=== PATIENT | female | born 1995 | race Caucasian/White ===

== ENCOUNTER → 2017-03-21 | Outpatient (CLI) | payer BC | LOC: LAB 10:52 | DX: O20.0 Threatened abortion (principal) | CPT/HCPCS: 36415; 84702; 86900; 86901 ==

== ENCOUNTER → 2017-03-25 | Outpatient (CLI) | payer BC | LOC: LAB 13:00 | DX: O20.0 Threatened abortion (principal) | CPT/HCPCS: 36415; 84702 ==

== ENCOUNTER 2021-06-07 16:45 | Inpatient (IN) | payer OTHER ==
[~2021-06-07] VITALS: Ht 167.6 cm; Wt 99.8 kg
[~2021-06-07 16:45] MED LIST: COLACE 100MG C100 MG PO; IBUPROFEN600 MG PO; PRENATAL TABLE1 EAC1 PO
[2021-06-07 19:23] LABS: HEMOGLOBIN 13.2 gm/dl (12.3-15.3); RED BLOOD COUNT 4.17 M/UL (4.00-5.10); WHITE BLOOD COUNT 10.1 K/UL (4.5-11.0)
[2021-06-09 05:10] LABS: HEMOGLOBIN 11.4 gm/dl (12.3-15.3)
[2021-06-09] MEDS ORDERED: DOCUSATE SODIU100 MG PO (10:49)
[2021-06-09] MEDS ORDERED: IBUPROFEN600 MG PO (10:49)
== END 2021-06-09 16:28 | disposition home or self-care (01) | DRG 807 ==
LOC: GENOP 16:45 → OB 17:16
PROVIDERS: Obstetrics & Gynecology; ADMIT Obstetrics & Gynecology
PROC: 10E0XZZ Delivery of Products of Conception, External Approach (ICD-10-PCS; principal; 2021-06-08)
PROC: 3E033VJ Introduction of Other Hormone into Peripheral Vein, Percutaneous Approach (ICD-10-PCS; 2021-06-08)
PROC: 10907ZC Drainage of Amniotic Fluid, Therapeutic from Products of Conception, Via Natural or Artificial Opening (ICD-10-PCS; 2021-06-08)
PROC: 0U7C7ZZ Dilation of Cervix, Via Natural or Artificial Opening (ICD-10-PCS; 2021-06-08)
PROC: 0HQ9XZZ Repair Perineum Skin, External Approach (ICD-10-PCS; 2021-06-08)
PROC: 4A1HXCZ Monitoring of Products of Conception, Cardiac Rate, External Approach (ICD-10-PCS; 2021-06-08)
DX: O70.0 First degree perineal laceration during delivery (principal); Z37.0 Single live birth; Z3A.39 39 weeks gestation of pregnancy; Z20.822 Contact with and (suspected) exposure to COVID-19
CPT/HCPCS: 36415; 81001; 82800; 85014; 85018; 85025; 90715; J2590; J7120; U0002